=== PATIENT | female | born 1980 | race African-American/Black ===

== ENCOUNTER 2020-03-05 16:25 | Outpatient (CLI) | payer OTHER ==
--- NOTE | 2020-03-05 16:39 | RAD ---
Right wrist 3 views HISTORY: Injury. FINDINGS: Scaphoid waist and ulnar styloid are intact. Mild ulnar positive variant. No acute fracture, dislocation, or aggressive osseous erosions. IMPRESSION : No acute osseous abnormalities are demonstrated.
== END 2020-03-05 16:26 | disposition home or self-care (01) ==
LOC: BICRAD 16:25
PROVIDERS: ATTEND Nurse Practitioner Family
DX: M25.531 Pain in right wrist (principal)

== ENCOUNTER 2021-04-03 14:12 | Outpatient (CLI) | payer OTHER | END 2021-04-03 14:13 | disposition home or self-care (01) | LOC: BICMAMMO 14:12 | PROVIDERS: ATTEND Nurse Practitioner Family | DX: N64.52 Nipple discharge (principal) | CPT/HCPCS: 77066; G0279 ==

== ENCOUNTER 2021-07-10 10:33 | Outpatient (CLI) | payer OTHER | END 2021-07-10 10:34 | disposition home or self-care (01) | LOC: BICMAMMO 10:33 | PROVIDERS: ATTEND Internal Medicine Endocrinology, Diabetes & Metabolism | DX: Z13.820 Encounter for screening for osteoporosis (principal); E21.2 Other hyperparathyroidism | CPT/HCPCS: 77080 ==

== ENCOUNTER 2022-05-12 08:19 | Outpatient (CLI) | payer OTHER | END 2022-05-12 08:20 | disposition home or self-care (01) | LOC: BICMAMMO 08:19 | PROVIDERS: ATTEND Nurse Practitioner Family | DX: N63.41 Unspecified lump in right breast, subareolar (principal); N64.59 Other signs and symptoms in breast | CPT/HCPCS: 77066; G0279 ==